=== PATIENT | female | born 1980 | race Caucasian/White ===

== ENCOUNTER 2018-10-21 14:19 | Outpatient (CLI) | payer BC | END 2018-10-21 14:20 | disposition home or self-care (01) | LOC: CTENTCT 14:19 | PROVIDERS: ATTEND Otolaryngology Plastic Surgery within the Head & Neck | DX: J32.9 Chronic sinusitis, unspecified (principal) | CPT/HCPCS: 70486 ==

== ENCOUNTER 2018-11-17 08:52 | Day surgery (SDC) | payer BC ==
[2018-11-16 12:59] VITALS: BMI 32.9
[2018-11-17] MEDS ORDERED: Oxymetazoline HCl 0.05% ( 15 ML ) ONE ×2 (09:19→10:56)
[2018-11-17] MEDS ORDERED: Fentanyl 250 MCG/5 ML VIAL ONE (09:34)
[2018-11-17 09:47] LABS: BHCG - Serum Negative (NEGATIVE); Pregs Control Background? CLEAR/WHITE (CLR/WHITE); Pregs Control Bar Appear? YES (CONTROL BAR)
[2018-11-17] MEDS ORDERED: Midazolam HCl 2 mg/2 ml Vial ONE (09:47)
[2018-11-17] MEDS ORDERED: Scopolamine 1.5 mg/72 hour Patch ONE (09:47)
[2018-11-17] MEDS ORDERED: Lidocaine 1% w/Epinephrine 1:100K 20 ML VIAL ONE (10:56)
[2018-11-17] MEDS ORDERED: Fentanyl 100 MCG/2 ML VIAL ONE (13:02)
[2018-11-17] MEDS ORDERED: Ondansetron PF 4 MG/2 ML Vial ONE (14:49)
[2018-11-17] MEDS ORDERED: PROPOFOL 200 MG/20 ML VIAL ONE (14:49)
[2018-11-17] MEDS ORDERED: Dexamethasone 20 MG/5 ML VIAL ONE (14:49)
[2018-11-17] MEDS ORDERED: Labetalol HCl 100 MG/20 ML VIAL ONE (14:49)
[2018-11-17] MEDS ORDERED: Lidocaine 1% PF 5 ML VIAL ONE (14:49)
[2018-11-17] MEDS ORDERED: HYDROcodone/Acetaminophen 5/325 mg Tablet ONE (15:02)
--- NOTE | 2018-11-17 18:58 | OP ---
DATE OF PROCEDURE: 11/17/2018 PREOPERATIVE DIAGNOSES: 1. Chronic rhinosinusitis. 2. Bilateral inferior turbinate hypertrophy. 3. Adenoid hypertrophy. 4. Nasopharyngeal mass. POSTOPERATIVE DIAGNOSES: 1. Chronic rhinosinusitis. 2. Bilateral inferior turbinate hypertrophy. 3. Adenoid hypertrophy. 4. Nasopharyngeal mass. PROCEDURES PERFORMED: 1. Bilateral endoscopic sinus surgery, total ethmoidectomies. 2. Bilateral endoscopic sinus surgery, maxillary antrostomies. 3. Bilateral endoscopic sinus surgery, frontal sinusotomies. 4. Bilateral inferior turbinate submucosal resection. 5. Adenoidectomy. 6. Exam under anesthesia and biopsy of nasopharynx. ESTIMATED BLOOD LOSS: 50 mL. COMPLICATIONS: None. ANESTHESIA: GETA. DESCRIPTION OF PROCEDURE: The patient was taken to the operating room and placed supine on table, general endotracheal anesthesia was obtained by the anesthesia staff. Tube was secured in the left lower lip. The patient was then placed in a beach chair position. Following this, a shoulder roll was placed, and a Kaykay-Heber mouth gag was introduced into the oral cavity and was retracted. A [place]-Pau was placed through the nasal cavity and retracted through the oral cavity in order to provide elevation of the soft palate superiorly. Following this, the laryngeal mirror was used to visualize the adenoid pad and nasopharynx. There was a large adenoid pad with a midline nasopharyngeal mass extending from this adenoid pad. This mass was removed using the Box forceps and up-biting Blakesley forceps. Following this, the 40-degree microdebrider blade was used to remove the entire adenoid pad as well as to ensure complete removal of this nasopharyngeal mass. Following this, hemostasis was obtained using the suction Bovie device. Following this, the Kaykay-Heber mouth gag was then removed. The oral cavity was irrigated and suctioned. Following this, the patient was then placed in a beach chair position and was prepped and draped for standard nasal procedure. Following this, a 0-degree endoscope was advanced in the nasal cavity. 1% lidocaine with 1:100,000 epinephrine was injected into the inferior turbinates, middle turbinates, and lateral nasal wall bilaterally. Following this, the middle turbinates were gently medialized using a [place] elevator. The uncinate process was identified and was anteriorly fractured using a ball-ended probe. The uncinate process was then removed using the 0-degree microdebrider and the up-biting Blakesley forceps bilaterally. Following this, the natural maxillary sinus ostia was identified and was gently widened using the straight Blakesley forceps and the curved microdebrider. Following this, the ethmoidal bulla was identified and was punctured on its medial and inferior aspects using the microdebrider. Following this, the ethmoidal bulla was removed using the microdebrider and the up-biting Blakesley forceps bilaterally. Following this, the grand lamella was identified and was punctured into the posterior ethmoidal cells. Working from posterior to anterior, the ethmoidal cells were opened in a mucosal sparing technique. Following this, the 45-degree endoscope and the curved microdebrider blade were used to further open the anterior ethmoidal cells. This exposed the frontal sinus ostia bilaterally, which was then widened using the 40-degree microdebrider bilaterally. Following this, the inferior turbinates were punctured on the anterior and inferior aspects with the submucosal microdebrider, and submucosal resection was performed of the anterior and inferior portions of the inferior turbinates. Following this, the nasal cavity was irrigated. MeroPacks were placed within the middle meatus. The patient tolerated the procedure well. Job ID: [id number]
== END 2018-11-17 15:35 | disposition home or self-care (01) ==
LOC: SDC 08:52
PROVIDERS: ATTEND Otolaryngology Plastic Surgery within the Head & Neck
PROC: 09TL8ZZ Resection of Nasal Turbinate, Via Natural or Artificial Opening Endoscopic (ICD-10-PCS; principal; 2018-11-17)
PROC: 0CTQXZZ Resection of Adenoids, External Approach (ICD-10-PCS; principal; 2018-11-17)
PROC: 099Q8ZZ Drainage of Right Maxillary Sinus, Via Natural or Artificial Opening Endoscopic (ICD-10-PCS; principal; 2018-11-17)
PROC: 099R8ZZ Drainage of Left Maxillary Sinus, Via Natural or Artificial Opening Endoscopic (ICD-10-PCS; principal; 2018-11-17)
DX: J35.2 Hypertrophy of adenoids (principal); J34.3 Hypertrophy of nasal turbinates; J32.9 Chronic sinusitis, unspecified; J39.2 Other diseases of pharynx; K21.9 Gastro-esophageal reflux disease without esophagitis; I10 Essential (primary) hypertension; E03.9 Hypothyroidism, unspecified
CPT/HCPCS: 36415; 84703; 85014; 88184; 88305; J0131; J1100; J2001; J2250; J2405; J2704; J3010

== ENCOUNTER 2022-08-22 11:23 | Outpatient (CLI) | payer OTHER | END 2022-08-22 11:24 | disposition home or self-care (01) | LOC: BICULT 11:23 | PROVIDERS: ATTEND Nurse Practitioner Family | DX: R10.2 Pelvic and perineal pain (principal) | CPT/HCPCS: 76856 ==